=== PATIENT | male | born 1970 | race Caucasian/White ===

== ENCOUNTER 2019-05-22 14:25 | Inpatient (IN) ==
[2019-05-22 14:53] LABS: URINE SOURCE CLEAN CATCH
[2019-05-22 15:00] LABS: BILIRUBIN URINE NEGATIVE (NEGATIVE); BLOOD URINE NEGATIVE (NEGATIVE); COLOR STRAW; GLUCOSE URINE NEGATIVE (NEGATIVE); KETONE URINE TRACE mg/dL (NEGATIVE); LEUKOCYTES URINE NEGATIVE (NEGATIVE); NITRITE URINE NEGATIVE (NEGATIVE); PH URINE 6.5; PROTEIN URINE NEGATIVE (NEGATIVE); SP GRAVITY URINE 1.004; TURBIDITY URINE CLEAR (CLEAR); UR EPITHELIAL CELLS <10 /HPF (<10); URINE BACTERIA NEGATIVE /HPF; URINE RBC <10 /HPF (<10); URINE WBC <10 /HPF (<10); UROBILINOGEN URINE NORMAL (NORMAL)
--- NOTE | 2019-05-22 15:11 | PROVIDER DOCUMENTATION ---
HPI-Psychological Disorder - General Chief Complaint: Psych-High Risk Stated Complaint: VOMITING/COUCH/PANIC ATTACKS Time Seen by Provider: 05/22/19 14:34 Source: patient, family Allergies/Adverse Reactions: Patient Allergies Allergy/AdvReac Type Severity Reaction Status Date / Time No Known Allergies Allergy Verified 05/22/19 15:24 Home Medications: Home Medication List Medication Instructions Recorded Confirmed Last Taken Type Phenylephrine HCl [Sinus 1 tab PO DAILY 05/22/19 05/22/19 05/22/19 History Decongestant] - History of Present Illness-Psych Nature of Presenting Problem: 49 yr old M, presents to the ED today requesting assistance with recent onset of worsening anxiety, panic attacks and suicidal ideation. The pt recently lost his mother about a month ago, and has had a hard time managing his grief; he is accompanied by his sister at bedside, who states that at one point, a friend had to move all of the pt's guns out of his house because of the severity of his grief. The pt reports that he has a high-stress job, and since the loss of his mother, has had difficulty trying to keep up with it. His records supervisor was initially understanding, but recently (Saturday) implied that the pt would either have to return to work or risk losing his job. The pt reports worsening anxiety since that time. Additionally, for the past week, the pt has had nausea, vomiting, shakes and diarrhea. He reports daily alcohol use (at least 5-7 beers), but denies ever going into delirium tremens; the alcohol use has been ongoing for years, but the sister feels that it has ramped up since his mother's . The pt does deny active SI at the time of this evaluation; he has thought about hurting himself, but not today, and has no active plan in place; he is more concerned about managing the intense panic and anxiety that he feels. He currently complains of "chest burning" that has been ongoing for a few days. Onset/Duration: reports: 6 days ago Timing: reports: still present Severity: reports: moderate Situational problems related to:: reports: recent Psychiatric Complaints: reports: depressed, impaired concentration, suicidal id eation Substance Use: reports: alcohol Previous psych related hospitalizations?: No Patient arrived by:: private car Similar Symptoms Previously?: No Recently seen or treated by another doctor?: No - Suicidal Ideation Suicide Risk Assessment: male sex, depressed, drug or ETOH abuse, frightened friends-family. negative: age <19, age >65, no social supports, organized plan Clinician's estimation of suicide risk?: high risk Review of Systems - Adult - REVIEW OF SYSTEMS - ADULT Constitutional: reports: no symptoms reported Eyes: reports: no symptoms reported Ears, Nose, Mouth & Throat: reports: no symptoms reported Cardiovascular: reports: no symptoms reported Respiratory: reports: no symptoms reported Gastrointestinal: reports: see HPI Genitourinary: reports: no symptoms reported Musculoskeletal: reports: no symptoms reported Integumentary: reports: no symptoms reported Neurological: reports: no symptoms reported Past History - Adult - PAST MEDICAL HISTORY-ADULT Review of Records: reports: Nursing Assessment Review Major Childhood Illnesses: reports: denies history Cardiovascular: reports: denies history - PRIOR SURGERIES/PROCEDURES Surgical/Procedure History: reports: hernia repair, orthopedic (extremity), back/neck - SOCIAL HISTORY Smoking: chew Provider spent 3-5 mins advising pt. on dangers of tobacco.: Discussed manners to quit use, and f/u contacts for add'l counseling. Substance Use: alcohol Alcohol Use Frequency: every day Number of drinks per typical drinking period:: 5-10 drinks Living Situation: alone Physical Exam-Psych Focus - Physical Exam-Psych Initial Vital Signs Reviewed: Yes Appearance: appropriate appearance, appropriate insight, alert, anxious Neurological: alert, calm, oriented x 3 Behavior/Eye Contact/Speech: cooperative, good eye contact, normal speech Thoughts/Hallucinations: normal thought pattern, no apparent hallucination HENMT: normocephalic/atraumatic, moist mucous membranes Respiratory: chest non-tender, lungs clear, normal breath sounds Cardiovascular: tachycardia Abdominal Exam: normal bowel sounds, non tender, soft Extremity: no pedal edema, no calf tenderness Integumentary: warm/dry Progress - PLAN OF CARE/RESULTS Progress/Plan/Lab Results: Vital Signs - 8 hr 05/22/19 14:30 Temperature 97.8 F Pulse Rate 109 H Respiratory Rate 20 Blood Pressure 205/115 O2 Sat by Pulse Oximetry 99 05/22/19 15:36 Influenza Screen - Final Nasopharyngeal Laboratory Results - last 24 hr 05/22/19 05/22/19 05/22/19 14:41 14:41 15:33 WBC RBC Hgb Hct MCV MCH MCHC RDW Std Deviation Plt Count MPV Immature Gran % (Auto) Neut % (Auto) Lymph % (Auto) [place] % (Auto) Eos % (Auto) Baso % (Auto) Immature Gran # (Auto) Neut # (Auto) Lymph # (Auto) [place] # (Auto) Eos # (Auto) Baso # (Auto) PT INR PTT (Actin FS) Sodium 128 L Potassium 3.8 Chloride 86 L Carbon Dioxide 22 L Anion Gap 20 BUN 6 L Creatinine 0.7 Estimated GFR/1.73 m2 > 60 BUN/Creatinine Ratio 9 Glucose 95 Calculated Osmolality 255 Calcium 9.3 Total Bilirubin 1.21 H AST 378 H ALT 234 H Alkaline Phosphatase 97 Creatine Kinase 190 Troponin T High Sens Total Protein 8.0 Albumin 5.3 H Globulin 2.7 Albumin/Globulin Ratio 2.0 Urine Source CLEAN CATCH Urine Color STRAW Urine Turbidity CLEAR Urine pH 6.5 Ur Specific [place] 1.004 Urine Protein NEGATIVE Ur Glucose (Stick) NEGATIVE Ur Ketones (Stick) TRACE A Urine Blood NEGATIVE Urine Nitrite NEGATIVE Urine Bilirubin NEGATIVE Urobilinogen Dipstick NORMAL Urine Leukocytes NEGATIVE Urine WBC (Auto) <10 Urine RBC (Auto) <10 U Epithel Cells (Auto) <10 Urine Bacteria (Auto) NEGATIVE Salicylates < 3.00 L Urine Opiates Screen NONE DETECTED Ur Oxycodone Screen NONE DETECTED Ur Methadone, Qual NONE DETECTED Acetaminophen < 1.2 L Ur Barbiturates Screen NONE DETECTED Ur Phencyclidine Scrn NONE DETECTED Ur Amphetamines Screen NONE DETECTED U Benzodiazepines Scrn NONE DETECTED Urine Cocaine Screen NONE DETECTED U Cannabinoids Screen NONE DETECTED Plasma/Serum Ethyl Alc 05/22/19 05/22/19 05/22/19 15:33 15:33 15:33 WBC 4.06 L RBC 4.21 L Hgb 14.0 Hct 40.8 L MCV 96.9 MCH 33.3 H MCHC 34.3 RDW Std Deviation 11.9 Plt Count 139 MPV 9.1 Immature Gran % (Auto) 0.0 Neut % (Auto) 70.2 Lymph % (Auto) 16.0 L [place] % (Auto) 13.1 H Eos % (Auto) 0.5 Baso % (Auto) 0.2 Immature Gran # (Auto) 0.00 Neut # (Auto) 2.85 Lymph # (Auto) 0.65 L [place] # (Auto) 0.53 Eos # (Auto) 0.02 Baso # (Auto) 0.01 PT INR PTT (Actin FS) Sodium Potassium Chloride Carbon Dioxide Anion Gap BUN Creatinine Estimated GFR/1.73 m2 BUN/Creatinine Ratio Glucose Calculated Osmolality Calcium Total Bilirubin AST ALT Alkaline Phosphatase Creatine Kinase Troponin T High Sens 9 Total Protein Albumin Globulin Albumin/Globulin Ratio Urine Source Urine Color Urine Turbidity Urine pH Ur Specific [place] Urine Protein Ur Glucose (Stick) Ur Ketones (Stick) Urine Blood Urine Nitrite Urine Bilirubin Urobilinogen Dipstick Urine Leukocytes Urine WBC (Auto) Urine RBC (Auto) U Epithel Cells (Auto) Urine Bacteria (Auto) Salicylates Urine Opiates Screen Ur Oxycodone Screen Ur Methadone, Qual Acetaminophen Ur Barbiturates Screen Ur Phencyclidine Scrn Ur Amphetamines Screen U Benzodiazepines Scrn Urine Cocaine Screen U Cannabinoids Screen Plasma/Serum Ethyl Alc 125 H 05/22/19 15:33 WBC RBC Hgb Hct MCV MCH MCHC RDW Std Deviation Plt Count MPV Immature Gran % (Auto) Neut % (Auto) Lymph % (Auto) [place] % (Auto) Eos % (Auto) Baso % (Auto) Immature Gran # (Auto) Neut # (Auto) Lymph # (Auto) [place] # (Auto) Eos # (Auto) Baso # (Auto) PT 12.9 INR 0.96 PTT (Actin FS) 29.7 Sodium Potassium Chloride Carbon Dioxide Anion Gap BUN Creatinine Estimated GFR/1.73 m2 BUN/Creatinine Ratio Glucose Calculated Osmolality Calcium Total Bilirubin AST ALT Alkaline Phosphatase Creatine Kinase Troponin T High Sens Total Protein Albumin Globulin Albumin/Globulin Ratio Urine Source Urine Color Urine Turbidity Urine pH Ur Specific [place] Urine Protein Ur Glucose (Stick) Ur Ketones (Stick) Urine Blood Urine Nitrite Urine Bilirubin Urobilinogen Dipstick Urine Leukocytes Urine WBC (Auto) Urine RBC (Auto) U Epithel Cells (Auto) Urine Bacteria (Auto) Salicylates Urine Opiates Screen Ur Oxycodone Screen Ur Methadone, Qual Acetaminophen Ur Barbiturates Screen Ur Phencyclidine Scrn Ur Amphetamines Screen U Benzodiazepines Scrn Urine Cocaine Screen U Cannabinoids Screen Plasma/Serum Ethyl Alc Orders Category Date Time Status Admit - [facility] Routine AdmDCTranf 05/22/19 17:55 Active Activity - Strict Bedrest ORDERED Care 05/22/19 17:55 Active Apply Mechanical Device [QM] ORDERED Care 05/22/19 17:55 Active Initiate Psych Med Clear.Amanda DIRECTED Care 05/22/19 14:36 Active Intake and Output-Strict ORDERED Care 05/22/19 17:55 Active Nursing- Obtain EKG ONCE Care 05/22/19 15:26 Active Saline Loc NOW Care 05/22/19 15:26 Active Vital Signs Order Q1H Care 05/22/19 17:55 Active Z-Document. for Tele Applied ORDERED Care 05/22/19 17:55 Active CHEST-2 VIEWS [RAD] Stat Exams 05/22/19 15:26 Completed ACETAMINOPHEN [TDM] Stat Lab 05/22/19 15:33 Completed ALCOHOL BLOOD Routine Lab 05/23/19 06:00 Ordered ALCOHOL BLOOD Stat Lab 05/22/19 15:33 Completed CBC WITH ELECTRONIC DIFF [HEME] Stat Lab 05/22/19 15:33 Completed CBC WITH NO DIFF [HEME] Routine Lab 05/23/19 06:00 Ordered CK PROFILE [SP CHEM] Stat Lab 05/22/19 15:33 Completed CMP [COMPREHENSIVE METABOLIC PANEL] [CHEM] Stat Lab 05/22/19 15:33 Completed COMPREHENSIVE METABOLIC PANEL [CHEM] Routine Lab 05/23/19 06:00 Ordered HEPATITIS PROFILE [HH] Routine Lab 05/23/19 06:00 Ordered INFLUENZA SCREEN A/B Stat Lab 05/22/19 15:36 Completed MAGNESIUM [CHEM] Routine Lab 05/23/19 06:00 Ordered PROTIME WITH INR [COAG] Stat Lab 05/22/19 15:33 Completed PTT [COAG] Stat Lab 05/22/19 15:33 Completed SALICYLATES [TDM] Stat Lab 05/22/19 15:33 Completed TROPONIN T HIGH SENSITIVITY Stat Lab 05/22/19 15:33 Completed TSH Routine Lab 05/23/19 06:00 Ordered URINALYSIS W/POSS RFLX CULT [URINALYSIS] Stat Lab 05/22/19 14:41 Completed URINE DRUG SCREEN Stat Lab 05/22/19 14:41 Completed 0.9% Sodium Chloride Inj [Ns] 1,000 ml Med 05/22/19 17:55 Active IV 75 mls/hr 0.9% Sodium Chloride Inj [Ns] 1,000 ml Med 05/22/19 15:26 Discontinued IV 999 mls/hr Labetalol Med 05/22/19 18:03 Active 20 mg IV Q4H PRN PRN Lorazepam [Ativan] Med 05/22/19 18:04 Active 1 mg IV Q4H PRN PRN Mvi [M.v.i.-12] 10 ml Med 05/23/19 09:00 Ordered Folic Acid 1 mg Magnesium Sulfate 1 gm Thiamine 100 mg 0.9% Sodium Chloride Inj [Ns] 1,000 ml IV DAILY Ns + Mvi in Alternating IV Med 05/22/19 16:30 Discontinued Pantoprazole [Protonix] Med 05/23/19 07:00 Active 40 mg IV Q24H Sodium Chloride 0.9% Med 05/22/19 18:15 Active 10 ml INJ DIRECTED Oxygen Device Routine Oth 05/22/19 17:58 Active Pulse Oximetry Routine Oth 05/22/19 17:58 Active Telemetry [OM.EQ] Routine Oth 05/22/19 17:55 Active EKG [EKG] Stat Ther 05/22/19 15:26 Ordered Transfer/Admit Order [TRANSFER] Routine Transfer 05/22/19 16:53 Ordered Pt has some electrolyte abnormalities; likely due to alcohol use; however, given his other symptoms, and concern for DTs; did speak with hospitalist, and pt will be accepted for further management. Result Diagrams: 05/22/19 15:33 05/22/19 15:33 - CONSULTS/PCP/HOSPITALIST Notification #1 *Consult/PCP/Hospitalist*: Becca Time Discussed: 16:53 Consult Disposition: Admit Departure - Departure Date of Disposition Decision: 05/22/19 Time of Disposition Decision: 16:53 DIAGNOSIS: Hyponatremia Disposition: ADMITTED INPATIENT 09 Certified Medical Emergency: Emergent Condition: Stable Referrals and Follow-Ups: None,PCP [Primary Care Provider] - - Critical Care Note This patient required my direct & personal management of CC.: No Attestation - Physician/ DAVID Attestation Patient care was provided by Advanced Practice Provider:: No The physician spent face to face time with patient:: Yes Advanced Practice Provider documentation review:: Supervising physician onsite and consulted in the evaluation and care of this patient. The physician did have a face to face encounter with the patient.
[2019-05-22] MEDS ORDERED: NS 1,000 ML IV ONE (15:26)
[2019-05-22 15:31] LABS: UR AMPHETAMINES QUAL NONE DETECTED (NONE DETECT); UR BARBITUATES QUAL NONE DETECTED (NONE DETECT); UR BENZODIAZEPIN QUAL NONE DETECTED (NONE DETECT); UR CANNABINOIDS QUAL NONE DETECTED (NONE DETECT); UR COCAINE QUAL NONE DETECTED (NONE DETECT); UR METHADONE QUAL NONE DETECTED (NONE DETECT); UR OPIATES QUAL NONE DETECTED (NONE DETECT); UR OXYCODONE QUAL NONE DETECTED (NONE DETECT); UR PCP QUAL NONE DETECTED (NONE DETECT)
[2019-05-22 15:48] LABS: BASO# 0.01 X1000 (0.0-0.2); BASO% 0.2 % (0.0-0.8); EOS# 0.02 X1000 (0.0-0.7); EOS% 0.5 % (0.0-10.0); HEMATOCRIT 40.8 % (42.0-52.0); LYMPH# 0.65 X1000 (1.2-3.4); MCH 33.3 PG (27-31); MCHC 34.3 g/dL (33-37); MCV 96.9 FL (81-99); MONO# 0.53 X1000 (0.11-0.59); MONO% 13.1 % (1.7-9.3); MPV 9.1 FL (7.4-10.4); NEUT# 2.85 X1000 (1.4-6.5); NEUT% 70.2 % (42.2-75.2); PLT 139 X1000 (130-400); RBC 4.21 XMIL (4.7-6.1); RDW 11.9 % (11.5-14.5); WBC 4.06 X1000 (4.8-10.8)
--- NOTE | 2019-05-22 15:48 | Diag Imaging Result Doc PS360 ---
EXAM: CHEST-2 VIEWS 05/22/2019 HISTORY: chest burning TECHNIQUE: Two views the chest COMMENT: There is no evidence of acute cardiac or pulmonary disease and no previous studies are available for comparison. There is a screw within the right glenoid. IMPRESSION: No evidence of acute disease. Electronically signed by Shorty Garcia 05/22/2019 3:45 PM
[2019-05-22 16:08] LABS: ESTIMATED GFR > 60
[2019-05-22 16:11] LABS: ACETAMINOPHEN < 1.2 ug/mL (10-30); AGAP 20; ALBUMIN 5.3 g/dL (3.5-5.0); ALKALINE PHOSPHATASE 97 U/L (32-122); BUN 6 mg/dL (8-22); CALCIUM 9.3 mg/dL (8.8-10.2); CHLORIDE 86 mmol/L (98-107); CK PROFILE 190 U/L (24-204); COSMO 255; CREATININE 0.7 mg/dL (0.7-1.2); GLUCOSE 95 mg/dL (70-104); GOT 378 U/L (10-34); GPT 234 U/L (10-44); POTASSIUM 3.8 mmol/L (3.5-5.1); SALICYLATES < 3.00 mg/dL (3-10); SODIUM 128 mmol/L (136-145); TCO2 22 mmol/L (25-35); TOTAL BILIRUBIN 1.21 mg/dL (0.20-1.00)
[2019-05-22 16:21] LABS: INR 0.96; PROTIME 12.9 Seconds (11.0-16.0)
[2019-05-22 16:22] LABS: PTT 29.7 Seconds (22.3-41.8)
[2019-05-22] MEDS ORDERED: M V I IV SCH (16:30)
[2019-05-22] MEDS ORDERED: NS IV SCH (16:30)
[2019-05-22] MEDS ORDERED: NS 1,000 ML IV SCH (17:55)
[2019-05-22] MEDS ORDERED: LABETALOL IV PRN (18:03)
[2019-05-22] MEDS ORDERED: SODIUM CHLORIDE 0.9% INJ SCH (18:15)
[2019-05-22] MEDS ORDERED: ZOFRAN IV PRN (18:40)
[2019-05-22] MEDS ORDERED: ROBITUSSIN-DM PO PRN (18:41)
--- NOTE | 2019-05-22 19:55 | Diag Imaging Result Doc PS360 ---
EXAM: CT THORAX/ABD/PELVIS W/O CON - 05/22/2019 HISTORY: dyspnea/pneumonia TECHNIQUE: CT thorax and abdomen/pelvis without contrast. No contrast administered per request of the referring provider. COMPARISON: None. FINDINGS: CT thorax: There is some limitation of detail without administered contrast. The lungs appear clear. There is no pleural effusion or pneumothorax identified. There are no abnormally enlarged mediastinal lymph nodes identified. CT abdomen/pelvis: The liver is of substantially decreased attenuation diffusely consistent with fatty infiltration. There is no evidence of focal liver lesion. There are no abnormalities of the spleen, adrenal glands, or pancreas identified. There is mildly dense bile in the gallbladder. There are no calcified gallstones or pericholecystic inflammation seen. There is no renal stone or hydronephrosis identified. There is mild thickening of urinary bladder grant. There are nonspecific small retroperitoneal lymph nodes. There are no substantially enlarged lymph nodes identified. There are lumbar spine degenerative changes noted. There is no evidence of bowel obstruction. The appendix is surgically absent. There is no substantial bowel wall thickening identified. There is no free air, free fluid, or abscess identified. IMPRESSION: CT thorax: No evidence of acute disease. CT abdomen/pelvis: Substantial fatty infiltration of liver. Mildly dense bile in gallbladder. No calcified gallstones or pericholecystic inflammation seen. No bowel obstruction. No abscess. No free air. Mild thickening of urinary bladder grant. No hydronephrosis. This exam was performed using automated exposure control, adjustment of mA or kV according to patient size, and/or use of iterative reconstruction technique. Electronically signed by Lalo Barnhart 05/22/2019 7:53 PM
[2019-05-22] MEDS: CARAFATE LIQUID PO SCH (20:00)
--- NOTE | 2019-05-22 20:04 | EKG Report ---
Test Performed on : 05/22/2019 6:54:58 PM Test Reason : chest discomfort Blood Pressure : / mmHG Vent. Rate : 082 BPM Atrial Rate : 082 BPM P-R Int : 158 ms QRS Dur : 084 ms QT Int : 362 ms P-R-T Axes : 040 037 040 degrees QTc Int : 422 ms Normal sinus rhythm. Normal ECG No previous ECGs available Unconfirmed Result
[2019-05-22] MEDS: COREG PO SCH (21:31)
[2019-05-22] MEDS: TESSALON PO SCH (21:32)
--- NOTE | 2019-05-22 21:45 | HISTORY AND PHYSICAL ---
CHIEF COMPLAINT: I have had increasing anxiety and panic attacks and have been having persistent nausea, vomiting and diarrhea since my mom 3 weeks ago. HISTORY OF PRESENT ILLNESS: Mr. Jones is a 49-year-old male with a history of alcohol abuse who initially presented to the ER with a chief complaint of increasing anxiety and panic attacks as well as episodes of suicidal ideations since his mother 3 weeks ago. The patient reports that he works at a highly stressful job and ever since his mom , he has been experiencing a lot of grief over it and difficulty at work with anxiety in being able to do his job. The patient reports that over the last 10 days he has also had a dry hacking cough as well as nausea, vomiting and diarrhea. He states that he has been drinking 6 to 8 beers a day and this is something he has been doing for quite some time. The patient presented to an Urgent Care in [place] today and was told to come to [facility] for further treatment and evaluation. The patient also complains of reflux symptoms that have been going on for few days. He also states that he does use chewing tobacco on a regular basis but denies any cigarette use. The patient denies having any suicidal ideation at this time, but states that 2 weeks ago he felt suicidal. In the ER, the patient had a chest x-ray done that revealed no acute disease. He was noted to have a sodium of 128 and elevated LFT. PAST MEDICAL HISTORY: 1. Alcohol abuse. 2. Tobacco abuse. PAST SURGICAL HISTORY: 1. Right knee arthroscopy. 2. Left elbow surgery. 3. Back surgery. 4. C-spine surgery. 5. Appendectomy. 6. Hernia repair. FAMILY HISTORY: Reviewed and noncontributory. ALLERGIES: No known drug allergies. SOCIAL HISTORY: The patient lives at home alone. He states that he drinks 6 to 8 beers a day and has been doing this for several years. He uses chewing tobacco on a regular basis. He denies any illicit drug use. HOME MEDICATIONS: None. REVIEW OF SYSTEMS: A 12-point review of has been performed. Please refer to the history of present illness for pertinent positives and negatives. PHYSICAL EXAMINATION: VITAL SIGNS: Temperature 97.8 degrees, blood pressure 152/101, heart rate 96, respirations 18, O2 saturation 98% on room air. GENERAL: This is a middle-aged male lying on the stretcher in no acute distress. SKIN: No rashes, no lesions, normal capillary refill. HEENT: Normocephalic, atraumatic. Oral mucosa is moist. PERRLA, EOMI. NECK: Supple. No JVD. No lymphadenopathy. HEART: S1, S2 normal, tachycardic. LUNGS: Clear to auscultation bilaterally. No wheezing. No rales. No rhonchi. ABDOMEN: Positive bowel sounds. Soft, nontender, nondistended. EXTREMITIES: No edema, no cyanosis, no calf tenderness. NEUROLOGIC: The patient is alert and oriented x3. No focal neurologic deficits noted. Cranial nerves 2-12 intact. LABS: White blood cell count 4, hemoglobin 14, hematocrit 40, platelets 139,000. INR 0.96. Sodium 128, potassium 3.8, chloride 86, CO2 22, BUN 6, creatinine 0.7, glucose 95, total bilirubin 1.2, AST 378, ALT 234, alkaline phosphatase 97. UA shows trace ketones. Plasma alcohol level 125. Chest x-ray: No acute disease. ASSESSMENT AND PLAN: 1. Acute alcohol intoxication. The patient has been counseled about alcohol cessation. We will monitor the patient closely for signs of withdrawal. 2. Transaminitis. This may be secondary to the patient's heavy alcohol usage. We will check a hepatitis profile as well as an abdominal ultrasound. 3. Hyponatremia. We will start the patient on normal saline and monitor the sodium closely. 4. Nausea, vomiting and diarrhea. This may represent gastroenteritis. We will order a CT of the abdomen and pelvis as well as stool studies. We will start the patient on a full liquid diet and monitor. 5. Depression with suicidal ideation. The ideation appears to come and go. The patient does admit to being depressed since his mom 3 weeks ago. We will consult with [facility] once the patient is medically stable. 6. Anxiety disorder. Aware. 7. Gastrointestinal prophylaxis. The patient will be started on IV Protonix. 8. Deep vein thrombosis prophylaxis. We will start the patient on Lovenox. cc: Kasie Licea MD
[2019-05-22] MEDS: ATIVAN IV PRN (22:30)
[2019-05-23] MEDS: CARAFATE LIQUID PO SCH ×4 (02:00→20:35)
[2019-05-23] MEDS: TESSALON PO SCH ×3 (04:34→20:36)
[2019-05-23 05:44] LABS: HEMATOCRIT 38.4 % (42.0-52.0); MCH 33.3 PG (27-31); MCHC 33.9 g/dL (33-37); MCV 98.5 FL (81-99); MPV 9.2 FL (7.4-10.4); RBC 3.9 XMIL (4.7-6.1); RDW 11.7 % (11.5-14.5); WBC 3.06 X1000 (4.8-10.8)
[2019-05-23 06:08] LABS: AGAP 18; ALB/GLOB RATIO 1.6; ALBUMIN 4.4 g/dL (3.5-5.0); ALKALINE PHOSPHATASE 83 U/L (32-122); BUN 8 mg/dL (8-22); CALCIUM 9.5 mg/dL (8.8-10.2); CHLORIDE 96 mmol/L (98-107); COSMO 271; CREATININE 0.7 mg/dL (0.7-1.2); ESTIMATED GFR > 60; GLUCOSE 76 mg/dL (70-104); GOT 190 U/L (10-34); GPT 165 U/L (10-44); POTASSIUM 3.9 mmol/L (3.5-5.1); SODIUM 137 mmol/L (136-145); TCO2 23 mmol/L (25-35); TOTAL BILIRUBIN 1.37 mg/dL (0.20-1.00); TOTAL PROTEIN 7.2 g/dL (6.3-8.3)
[2019-05-23] MEDS: PROTONIX IV SCH (08:39)
[2019-05-23] MEDS: LOVENOX SUBQ SCH (08:39)
[2019-05-23] MEDS: M.V.I.-12 10 ML, FOLIC ACID 1 MG, MAGNESIUM SULFATE 1 GM, THIAMINE 100 MG in NS 1,000 ML IV SCH (08:40)
--- NOTE | 2019-05-23 09:17 | Diag Imaging Result Doc PS360 ---
EXAM: US ABDOMEN-COMPLETE HISTORY: elevated liver function TECHNIQUE: Abdominal ultrasound COMPARISON: Recent CT FINDINGS: Normal pancreatic head and body. The tail is obscured. Normal inferior vena cava. No abdominal aortic aneurysm. There is fatty infiltration of the liver. This was mentioned on the prior CT. No focal hepatic normality. Normal right kidney. No hydronephrosis. Normal gallbladder. No stones. The wall is not thickened. The common bile duct measures 4 mm. Normal left kidney. No hydronephrosis. No ascites. Normal spleen. IMPRESSION: Fatty infiltration of the liver is again seen. Electronically signed by Max Forbes 05/23/2019 9:15 AM
[2019-05-23] MEDS: COREG PO SCH ×2 (09:46→20:36)
[2019-05-23] MEDS ORDERED: ZOLOFT PO ONE (12:50)
[2019-05-23] MEDS: BUSPAR PO SCH (13:18)
--- NOTE | 2019-05-23 14:14 | PROGRESS NOTE ---
DATE: 05/23/2019 SUBJECTIVE: The patient is resting comfortably in bed. He states that he feels okay today. No acute events noted overnight. He denies any suicidal thoughts or ideation. He denies having any abdominal pain, nausea or diarrhea since admission. OBJECTIVE: Vital Signs: Temperature 98.2 degrees, blood pressure 135/94, heart rate 57, respirations 21, O2 saturation 97% on room air. General: This is a middle-aged male, lying on the bed, in no acute distress. Heart: S1, S2 normal. Regular rate and rhythm. Lungs: Clear to auscultation bilaterally. Abdomen: Positive bowel sounds. Soft, nontender, nondistended. Extremities: No edema, no cyanosis, no calf tenderness. Neurologic: The patient is alert and oriented x4. LABS: White blood cell count 3, hemoglobin 13, hematocrit 38, platelets 133,000. Sodium 137, potassium 3.9, chloride 96, CO2 23, BUN 8, creatinine 0.7, glucose 76. AST 190, ALT 167, alkaline phosphatase 83, vitamin D 23.6. IMAGING: Abdominal ultrasound reveals fatty liver disease. ASSESSMENT AND PLAN: 1. Acute alcohol intoxication. The patient's alcohol level is now undetectable. The patient has been counseled about alcohol cessation. 2. Transaminitis, slowly improving. This is likely secondary to the patient's heavy alcohol usage. The patient also has fatty liver disease that is on the abdominal ultrasound. We will refer the patient to a gas plant specialist as outpatient to follow the patient closely. Again, the patient has been counseled about alcohol cessation. 3. Hyponatremia. Resolved. 4. Nausea, vomiting and diarrhea. Resolved. 5. Depression. We will start the patient on Zoloft. We will await the recommendations from [facility]. 6. Suicidal ideation. The patient states that he felt suicidal 2 weeks ago, but he denies that he is suicidal at this time. He states that this is all related to the fact that he lost his mother 3 weeks ago. We will continue to monitor closely. 7. Anxiety disorder. We will start the patient on BuSpar. 8. Hypertension. Continue on Coreg. 9. Deep vein thrombosis prophylaxis. Continue on Lovenox. cc: Kasie Licea MD
[2019-05-23] MEDS: ATIVAN IV PRN (22:12)
[2019-05-24] MEDS: ATIVAN IV PRN ×2 (02:20→22:55)
[2019-05-24] MEDS: CARAFATE LIQUID PO SCH ×3 (02:20→13:03)
[2019-05-24] MEDS: TESSALON PO SCH ×3 (04:41→21:34)
[2019-05-24 05:21] LABS: AGAP 14; ALB/GLOB RATIO 1.5; ALBUMIN 4.1 g/dL (3.5-5.0); ALKALINE PHOSPHATASE 79 U/L (32-122); BUN 9 mg/dL (8-22); CALCIUM 8.9 mg/dL (8.8-10.2); CHLORIDE 98 mmol/L (98-107); COSMO 274; CREATININE 0.7 mg/dL (0.7-1.2); ESTIMATED GFR > 60; GLUCOSE 96 mg/dL (70-104); GOT 107 U/L (10-34); GPT 112 U/L (10-44); POTASSIUM 4.3 mmol/L (3.5-5.1); SODIUM 138 mmol/L (136-145); TCO2 26 mmol/L (25-35); TOTAL PROTEIN 6.9 g/dL (6.3-8.3)
[2019-05-24] MEDS: PROTONIX IV SCH (06:14)
[2019-05-24 08:37] LABS: HEPATITIS PROFILE ACUTE SEE COMMENTS
[2019-05-24] MEDS: COREG PO SCH ×2 (08:39→21:35)
[2019-05-24] MEDS: ZOLOFT PO SCH (08:39)
[2019-05-24] MEDS: LOVENOX SUBQ SCH (08:40)
[2019-05-24] MEDS: M.V.I.-12 10 ML, FOLIC ACID 1 MG, MAGNESIUM SULFATE 1 GM, THIAMINE 100 MG in NS 1,000 ML IV SCH (08:51)
[2019-05-24] MEDS: BUSPAR PO SCH (08:52)
[2019-05-24] MEDS ORDERED: VITAMIN D PO SCH (15:30)
--- NOTE | 2019-05-24 15:48 | PROGRESS NOTE ---
DATE: 05/24/2019 SUBJECTIVE: The patient is resting comfortably in bed. He has no complaints. No acute events noted overnight. OBJECTIVE: Vital Signs: Temperature 98.6 degrees, blood pressure 136/93, heart rate 88, respirations 19, O2 saturations 100% on room air. General: This is a middle-aged male lying in bed in no acute distress. Heart: S1, S2 normal regular rate and rhythm. Lungs: Clear to auscultation bilaterally. Abdomen: Positive bowel sounds. Soft, nontender, nondistended. Extremities: No edema, no cyanosis. Neurologic: The patient is alert and oriented x3. LABS: Sodium 138, potassium 4.3, chloride 98, CO2 of 26, BUN 9, creatinine 0.7. AST 107, ALT 112, alkaline phosphatase 79. ASSESSMENT AND PLAN: 1. Acute alcohol intoxication. Resolved. 2. Transaminitis. Continue to monitor closely. Slowly improving. The hepatitis profile was negative. This is likely secondary to the patient's heavy alcohol usage and fatty liver disease. 3. Depression. The patient was started on Zoloft. We will consult with the psychiatrist for further recommendations. 4. Anxiety disorder. The patient has been started on BuSpar. We will continue this for now. We will await recommendations from the psychiatrist. 5. Suicidal ideation. The patient states that he is no longer feeling suicidal. At this time, he refuses inpatient psychiatric treatment. 6. Fatty liver disease. The patient will need to follow up with GI as outpatient for close monitoring. 7. Alcohol dependence. The patient has been counseled about cessation. 8. Hypertension. Continue on Coreg. We will add Norvasc. 9. Deep vein thrombosis prophylaxis. Continue on Lovenox. cc: Kasie Licea MD
[2019-05-24] MEDS: NORVASC PO SCH (21:35)
[2019-05-25] MEDS: ATIVAN IV PRN (03:06)
[2019-05-25 05:31] LABS: HEMATOCRIT 35.7 % (42.0-52.0); HEMOGLOBIN 12.3 g/dL (14.0-18.0); MCH 34.1 PG (27-31); MCHC 34.5 g/dL (33-37); MCV 98.9 FL (81-99); MPV 9.6 FL (7.4-10.4); RBC 3.61 XMIL (4.7-6.1); RDW 11.7 % (11.5-14.5); WBC 3.19 X1000 (4.8-10.8)
[2019-05-25 06:05] LABS: AGAP 15; ALB/GLOB RATIO 1.4; ALKALINE PHOSPHATASE 75 U/L (32-122); BUN 6 mg/dL (8-22); CHLORIDE 98 mmol/L (98-107); COSMO 273; CREATININE 0.7 mg/dL (0.7-1.2); ESTIMATED GFR > 60; GLUCOSE 96 mg/dL (70-104); GOT 97 U/L (10-34); GPT 100 U/L (10-44); POTASSIUM 3.4 mmol/L (3.5-5.1); SODIUM 138 mmol/L (136-145); TCO2 25 mmol/L (25-35); TOTAL BILIRUBIN 0.92 mg/dL (0.20-1.00); TOTAL PROTEIN 6.9 g/dL (6.3-8.3)
[2019-05-25] MEDS: TESSALON PO SCH (06:10)
[2019-05-25] MEDS ORDERED: KLOR-CON PO ONE (06:26)
[2019-05-25] MEDS ORDERED: PRILOSEC PO SCH (07:00)
[2019-05-25 08:07] VITALS: BP 119/84
[2019-05-25] MEDS: ZOLOFT PO SCH (08:18)
[2019-05-25] MEDS: NORVASC PO SCH (08:18)
[2019-05-25] MEDS: BUSPAR PO SCH (08:18)
[2019-05-25] MEDS: COREG PO SCH (08:18)
[2019-05-25] MEDS: LOVENOX SUBQ SCH (08:19)
[2019-05-25] MEDS ORDERED: THERA M PLUS PO SCH (09:00)
--- NOTE | 2019-05-26 14:15 | DISCHARGE SUMMARY ---
ADMISSION DATE: 05/22/2019 DISCHARGE DATE: 05/25/2019 FINAL DISCHARGE DIAGNOSES: 1. Acute alcohol intoxication. 2. Transaminitis. 3. Depression. 4. Anxiety disorder. 5. Suicidal ideation. 6. Fatty liver disease. 7. Alcohol dependence. HOSPITAL COURSE: Mr. Jones is a 49-year-old male with a history of hypertension, who presented to the ER with a chief complaint of severe anxiety and depression. On admission, the patient was noted to be acutely intoxicated with alcohol, and he also had a transaminitis. The patient was admitted to the Hospitalist Service, and started on p.r.n. Ativan for anxiety. An abdominal ultrasound and a CT scan were done, which confirmed fatty liver disease, likely secondary to the patient's heavy alcohol usage. Over the course of the hospitalization, the transaminitis improved. The patient was assessed by [facility], who offered inpatient admission to the patient. However, the patient declined and stated that he preferred to be managed as outpatient. The patient was required to sign a care plan, and the patient was provided with multiple clinics that he could follow up with as outpatient for his psychiatric needs. The patient was started on Zoloft and BuSpar during this hospitalization, and he was also started on Coreg for his hypertension. The patient was ultimately discharged home on 05/25/2019. DISCHARGE MEDICATIONS: 1. Coreg 6.25 mg oral every 12 hours. 2. Zoloft 25 mg oral every morning. 3. Buspirone 7.5 mg oral daily. 4. Norvasc 5 mg oral twice a day. 5. Multivitamin 1 tablet oral daily. 6. Vitamin D 50,000 units oral every Saturday. DISCHARGE DIET: Low-sodium diet. ACTIVITY: As tolerated. FOLLOWUP INSTRUCTIONS: The patient was advised to find a primary care physician to establish care with. He was also given several handouts with information on all of the psychiatric clinics in the [facility] region, as well as addresses and phone numbers. cc: Kasie Licea MD
== END 2019-05-25 10:58 | disposition home or self-care (01) | DRG 897 ==
LOC: ED 14:25 → EDIPHOLD 18:38 → 1N 05-23 10:26
PROVIDERS: ATTEND Internal Medicine